=== PATIENT | female | born 1990 | race African-American/Black ===

== ENCOUNTER 2017-11-22 08:56 | Emergency (ER) | payer MEDICAID ==
[~2017-11-22] VITALS: Ht 167.6 cm; Wt 70.0 kg
[2017-11-22] MEDS ORDERED: LIDOCAINE HCL 1% 20ML VIAL (Pyxis) INJ MC ONE (10:15)
[2017-11-22] MEDS ORDERED: TRAMADOL 50MG TABLET PO ONE (12:15)
[2017-11-22 13:35] VITALS: BP 139/88
== END 2017-11-22 13:53 | disposition home or self-care (01) ==
LOC: ER 09:06
DX: L02.214 Cutaneous abscess of groin (principal); F17.200 Nicotine dependence, unspecified, uncomplicated; Z59.0 Homelessness
CPT/HCPCS: 10060; 99283; J3490; X7700; Z7610